=== PATIENT | female | born 2000 | race Caucasian/White ===

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

== ENCOUNTER 2022-04-24 11:39 | Outpatient (REF) | payer OTHER, SELFPAY ==
[2022-04-25 13:45] LABS: Chlamydia Result Negative (Negative); GC Result Negative (Negative)
== END 2022-04-24 11:40 | disposition home or self-care (01) ==
LOC: LBN 11:39
PROVIDERS: Visit Provider Obstetrics & Gynecology
DX: Z20.2 Contact with and (suspected) exposure to infections with a predominantly sexual mode of transmission (principal)
CPT/HCPCS: 87491; 87591

== ENCOUNTER 2023-02-03 10:15 | Emergency (ER) | payer BC, SELFPAY ==
[2023-02-03 10:18] VITALS: BP 149/97; PULSE 100; RESP 20; TEMP 36.8; O2SAT 99
--- NOTE | 2023-02-03 10:44 | W.ED.GENAD ---
Discharge Plan Disposition Patient Disposition: Home Discharge Details Clinical Impression: Dermatitis, Rash and nonspecific skin eruption Primary Care Provider: Madonna Redmond ED Provider: Jarrell Watson Home Meds and New Rx's Prescriptions: New hydroxyzine HCl 25 mg tablet 25 mg PO QID PRN (Reason: itching) Qty: 30 0RF famotidine [Pepcid] 20 mg tablet 20 mg PO DAILY Qty: 30 0RF loratadine [Claritin] 10 mg tablet 10 mg PO DAILY Qty: 30 0RF No Action Mirena 20 mcg/24 hours (8 yrs) 52 mg intrauterine device 1 device intrauterine ONCE Rx Instructions: as a single dose Discharge Instructions Instructions: Dermatitis (ED) Additional Instructions: Continue the prednisone and taper. Start additional medications as prescribed. Continue to use topical hydrocortisone. Can also use Aquaphor or other emollients. Return to the emergency department if you develop shortness of breath, difficulty swallowing, voice changes, nausea or vomiting. If symptoms are not improving, please follow-up with your primary care provider. Medical Decision Making Emergent evaluation of rash. Patient has a widespread rash. The rash is red and blanches on pressure. It is bumpy. Rash is consistent with a viral exanthem. Patient is fully vaccinated. There is no evidence of measles, rubella, roseola, scarlet fever, mumps, scarlet fever, Kawasaki disease, or tickborne disease. Patient is nontoxic-appearing. I do not suspect any severe bacterial infection at this time. No evidence of anaphylaxis. Patient is currently on steroids. Will add Atarax for itching as well as antihistamine with Claritin and Pepcid. HPI General Date/Time Provider Initiated Documentation: 02/03/23 10:25. HPI Narrative: 23-year-old female without significant past medical history presents for evaluation of rash. Symptoms have been present for a week. She has seen her primary care provider as well as urgent care and and provided steroids for this. She reports that the symptoms are not improving with the steroids. She denies any voice changes, difficulty swallowing, cough, wheezing, nausea, vomiting or abdominal pain. She reports that the rash is diffuse, it is very itchy. He does not associated with open wounds or drainage. She has applied topical hydrocortisone with some improvement. She denies any change in soap, lotion, detergent. She lives alone and has no pets. Related Data Home Medications Medication Instructions Recorded Confirmed levonorgestrel 21 mcg/24 hours (8 1 device intrauterine ONCE 05/20/22 yrs) 52 mg intrauterine device (Mirena) famotidine 20 mg tablet (Pepcid) 20 mg PO DAILY #30 tabs 02/03/23 hydroxyzine HCl 25 mg tablet 25 mg PO QID PRN itching #30 tabs 02/03/23 loratadine 10 mg tablet (Claritin) 10 mg PO DAILY #30 tabs 02/03/23 Previous Rx's Medication Instructions Recorded famotidine 20 mg tablet (Pepcid) 20 mg PO DAILY #30 tabs 02/03/23 hydroxyzine HCl 25 mg tablet 25 mg PO QID PRN itching #30 tabs 02/03/23 loratadine 10 mg tablet (Claritin) 10 mg PO DAILY #30 tabs 02/03/23 Allergies Allergy/AdvReac Type Severity Reaction Status Date / Time No Known Allergies Allergy Verified 02/03/23 10:23 General Stated Complaint: RashLesion JOSE: 4 PFSH All Active Problems Dermatitis (Acute) Rash and nonspecific skin eruption (Acute) Chlamydia contact, treated (Acute) Abnormal uterine bleeding (Acute) control (Acute) Mirena, 03/2023 Medical History IUD complication UTI (urinary tract infection) normal renal U/S Surgical History [place] teeth extracted Family History Mother Healthy adult Father Healthy adult Other Diabetes MGF Essential hypertension MGM, mat uncles Personal history of malignant neoplasm MGF-prostate Heart disease mat great grandparents Hyperlipidemia MGM, mat great GM Mental disorder cousin Myocardial infarction mat great GF Stroke mat great GM Social History Smoking/Tobacco Use Status: Never Smoking risk assessment performed?: Yes Alcohol Intake: never Drug use: Never Substance use type: does not use Do you feel safe at home: Yes Do you feel safe in your relationship?: Yes Female Reproductive History Menstrual Age of Menarche: 11 control method: copper IUCD (paragard inserted today LOT# [id number] EXP JULY 2025) History History 0 Para Hx # Term Pregnancies Multiple births Hx # Pregnancies Ectopic pregnancies AB induced Hx Number of Living Children AB spontaneous Exam Narrative Exam Narrative: Review of Systems: All systems reviewed & are unremarkable except as noted in HPI and below Exam: Const: Well-nourished, Well-developed, appearing stated age HEENT: NACT / Eyes: PERRL, no conjunctival injection, and symmetrical lids / EARS Atraumatic external nose and ears / MOUTH Moist MM / NECK: Symmetric, trachea midline, No thyromegaly / THROAT oropharynx clear CVS: RRR RESP: Unlabored respiratory effort GI: Nondistended MSK: Extremities w/o deformity or TTP, No cyanosis or clubbing, full range of motion Skin: Warm, Dry. diffuse rash noted, no petechia, not urticarial, some confluence of patches not on thigh. 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 Sensation grossly intact, no focal neurologic deficits. Psych: (AAO) x3. Appropriate mood and affect Course Vital Signs Vital signs: Vital Signs Temperature 36.8 C 02/03/23 10:18 Pulse 100 H 02/03/23 10:18 Respiratory Rate 20 02/03/23 10:18 Blood Pressure 149/97 H 02/03/23 10:18 Pulse Oximetry 99 02/03/23 10:18 Temperature 36.8 C 02/03/23 10:18 Temperature Source Oral 02/03/23 10:18 Pulse 100 H 02/03/23 10:18 Respiratory Rate 20 02/03/23 10:18 Blood Pressure 149/97 H 02/03/23 10:18 Blood Pressure Position Sitting 02/03/23 10:18 Pulse Oximetry 99 02/03/23 10:18 Oxygen Delivery Method Room Air 02/03/23 10:18 Oxygen Flow Rate 0 02/03/23 10:18
== END 2023-02-03 10:48 | disposition home or self-care (01) ==
PROVIDERS: Emergency Provider Emergency Medicine; PCP Nurse Practitioner Family
DX: L30.9 Dermatitis, unspecified
CPT/HCPCS: 99282

== ENCOUNTER 2023-06-01 15:25 | Outpatient (REF) | payer BC, SELFPAY ==
[2023-06-03 13:24] LABS: Chlamydia Result Negative (Negative); GC Result Negative (Negative)
== END 2023-06-01 15:26 | disposition home or self-care (01) ==
LOC: LBN 15:25
PROVIDERS: PCP Nurse Practitioner Family; Visit Provider Obstetrics & Gynecology
DX: N89.8 Other specified noninflammatory disorders of vagina (principal); Z11.3 Encounter for screening for infections with a predominantly sexual mode of transmission
CPT/HCPCS: 87491; 87591; 87480; 87510; 87660

== ENCOUNTER 2024-03-09 15:32 | Outpatient (REF) | payer BC, SELFPAY ==
[2024-03-11 12:12] LABS: Chlamydia Result Negative (Negative); GC Result Negative (Negative)
== END 2024-03-09 15:33 | disposition home or self-care (01) ==
LOC: LBN 15:32
PROVIDERS: PCP Nurse Practitioner Family; Visit Provider Obstetrics & Gynecology
DX: N89.8 Other specified noninflammatory disorders of vagina (principal); A59.01 Trichomonal vulvovaginitis
CPT/HCPCS: 87491; 87591; 87480; 87510; 87660